=== PATIENT | female | born 1990 | race Caucasian/White ===

== ENCOUNTER 2017-01-10 14:06 | Emergency (ER) | payer OTHER ==
[~2017-01-10] VITALS: Ht 160 cm; Wt 61.2 kg
--- NOTE | ~2017-01-10 | US98 ---
[facility] A Service of [facility] RADIOLOGY TEXT RESULTS PATIENT: NELSON HARRIS LOCATION: [facility] : [birth year] UNIT #: [id number] AGE: [address]: Kanika Gallardo APRN SEX: F ORDER DR: [id number] [facility] [address] [place], [place] [address] [id number] MR#: [id number] Acc #: [id number] NAME: NELSON HARRIS : 1990 SEX: F STUDY DATE/TIME: 01/10/2017 16:51 UNIT: [facility] ROOM: STUDY DESCRIPTION: US Pelvic Non-OB Complete Attending Physician: Kanika Gallardo A.P.R.N. Ordering Physician: Ed Doctor [id number] [facility] Primary Care Physician: Bautista Prasad M.D. MEDICAL IMAGING REPORT This report is preliminary unless electronic signature is present EXAM Pelvic ultrasound COMPARISON CT abdomen and pelvis dated January 06, 2010 INDICATIONS 26-year-old female with pelvic pain since last night, worsening this morning. The pain is worse on the left. FINDINGS The uterus is normal in size. There is normal endometrial stripe thickness. No uterine abnormality on this exam. The right ovary measures 3.1 cm x 1.5 cm x 3.4 cm and contains normal internal follicles. There is color and Doppler flow within the right ovary. In the left ovary there are also normal follicles. The left ovary measures 1.8 cm x 1.6 cm x 3.3 cm and contains internal color and Doppler flow. There is a small amount of free fluid in the pelvis, possibly physiologic. IMPRESSION Small amount of free fluid in the pelvis, possibly physiologic. Otherwise normal pelvic ultrasound. No evidence of ovarian torsion. Dictated by... Reji Landry M.D. THIS IS AN ELECTRONICALLY VERIFIED REPORT Reji Landry M.D. at 01/15/2017 7:47 AM BRUCE/anisha TD: 01/10/2017 23:19 JOB #: [id number] [facility] A Service of [facility] RADIOLOGY TEXT RESULTS PATIENT: NELSON HARRIS LOCATION: [facility] : [birth year] UNIT #: [id number] AGE: [address]: Kanika Gallardo APRN SEX: F ORDER DR: MEDICAL IMAGING REPORT Page 1 of 1 COPY
[~2017-01-10 14:06] MED LIST: DARVOCET-N 1001 TA2 PO; DIFLUCAN PO; NAPROSYN500 MG PO
[2017-01-10 15:26] LABS: URINE SOURCE CLEAN CATCH
[2017-01-10 15:32] LABS: URINE APPEARANCE CLEAR; URINE BILIRUBIN NEG (NEG); URINE BLOOD NEG (NEG); URINE COLOR YELLOW; URINE GLUCOSE NEG (NEG); URINE KETONE TRACE (NEG); URINE LEUKOCYTE ESTERASE NEG (NEG); URINE NITRATE NEG (NEG); URINE PROTEIN TRACE (NEG); URINE SPECIFIC GRAVITY 1.028 (1.003-1.035)
[2017-01-10 15:38] LABS: CULTURE INDICATED? NO
[2017-01-10 15:45] LABS: BASOPHIL% 0.4 % (0-2.5); EOSINOPHIL% 0.4 % (0.0-7.0); HEMATOCRIT 41.9 % (35.0-45.0); HEMOGLOBIN 13.6 gm/dL (12.0-16.0); LYMPHOCYTE# 1.2 X10e3 (1.0-3.5); LYMPHOCYTE% 9.7 % (17.0-45.0); MEAN CELL VOLUME 79.3 FL (83-96); MEAN CORPUSCULAR HEMOGLOBIN 25.7 PG (28-34); MEAN CORPUSCULAR HGB CONC 32.4 g/dL (30-36); MEAN PLATELET VOLUME 10.4 FL (6.5-11.5); MONOCYTE# 0.4 X10e3 (0-1.0); MONOCYTE% 3.1 % (3.0-12.0); NEUTROPHIL# 10.7 X10e3 (1.5-7.1); NEUTROPHIL% 86.4 % (40-75); RED BLOOD COUNT 5.28 X10e (3.90-5.30); RED CELL DISTRIBUTION WIDTH 15.6 % (11.0-15.5); WHITE BLOOD COUNT 12.4 X10e3 (4.0-10.5)
[2017-01-10 16:02] LABS: DIFF IND NO; PLATELET COUNT 270 X10e3 (140-420)
[2017-01-10 16:04] LABS: ALBUMIN SERUM 4.6 g/dL (3.5-5.0); BILIRUBIN,TOTAL 1.1 mg/dL (0.2-2.0); BUN/CREATININE RATIO 11.42; CALCIUM SERUM 9.4 mg/dL (8.4-10.2); CREATININE SERUM 0.7 mg/dL (0.6-1.4); GLOM FILT RATE Estimated 121.3 mL/min (>60); POTASSIUM 4.3 mmol/L (3.5-5.1); PROTEIN TOTAL SERUM 8.2 g/dL (6.0-8.3)
[2017-01-13 20:10] LABS: CHLAMYDIA TRACH Not Detected (Not Detected); N GONOR Not Detected (Not Detected)
== END 2017-01-10 18:01 | disposition home or self-care (01) ==
LOC: CFTX 14:06 → CED 14:06 → CFTX 16:02
PROVIDERS: Nurse Practitioner
DX: R10.32 Left lower quadrant pain (principal); R11.2 Nausea with vomiting, unspecified; R03.0 Elevated blood-pressure reading, without diagnosis of hypertension; F32.9 Major depressive disorder, single episode, unspecified; N83.209 Unspecified ovarian cyst, unspecified side; Z88.0 Allergy status to penicillin; Z79.899 Other long term (current) drug therapy
CPT/HCPCS: 36415; 76830; 76856; 80053; 81003; 84703; 85025; 87491; 87591; 87808; 87905; 99284